=== PATIENT | female | born 1975 | race Two or more races ===

== ENCOUNTER 2018-05-13 08:44 | Emergency (ER) | payer OTHER ==
[~2018-05-13] VITALS: Ht 152.4 cm; Wt 94.3 kg
--- NOTE | 2018-05-13 08:49 | NUR ---
PT BIB RA FROM WORK,RIGHT ANKLE DISLOCATION, SLIP/FALL GOING DOWN STAIRS, PT IS AAOX4, NOT IN RESPIRAOTRY DISTRESS, V/S STABLE, KEPT RESTED AND COMFORTABLE, HOOKED TO MONITOR, PREP FOR CONSCIOUS SEDATION.
--- NOTE | 2018-05-13 08:50 | NUR ---
IV LINE ESTABLISHED L AC G18.
[2018-05-13] MEDS ORDERED: PROPOFOL 20 ML IV ONE (08:57)
[2018-05-13] MEDS ORDERED: PROPOFOL 200 MG/20 ML VIAL IV ONE (09:00)
--- NOTE | 2018-05-13 09:10 | NUR ---
R ANKLE REDUCTION INITIATED, RT AT BEDSIDE.
--- NOTE | 2018-05-13 09:14 | NUR ---
R ANKLE REDUCTION DONE, SPLINT DONE BY CYBER ENGINEER.
--- NOTE | 2018-05-13 09:18 | NUR ---
RADIOLOGY BACK AT BEDSIDE FOR ANKLE XRAY S/P REDUCTION.
[2018-05-13] MEDS ORDERED: MORPHINE SULFATE INJ 4 MG/ML DISP.SYRIN ONE ×2 (09:55→10:24)
--- NOTE | 2018-05-13 10:00 | NUR ---
MORPHINE 4MG IVP GIVEN VERBAL ORDERED BY DR. PUENTES.
[2018-05-13] MEDS ORDERED: MORPHINE SULFATE INJ 2 MG/ML DISP.SYRIN IV ONE (10:30)
--- NOTE | 2018-05-13 11:10 | NUR ---
Patient discharged to home in stable condition. Written and verbal after care instructions given. Patient verbalizes understanding of instruction. IV removed. Catheter intact and site benign. Pressure and 4x4 applied to site. No bleeding noted.
[2018-05-13 11:11] VITALS: BP 122/71
--- NOTE | 2018-05-13 11:12 | NUR ---
[facility] PROVIDE.
== END 2018-05-13 11:16 | disposition home or self-care (01) ==
LOC: ER 08:44
DX: S82.841A Displaced bimalleolar fracture of right lower leg, initial encounter for closed fracture (principal); I10 Essential (primary) hypertension; F32.9 Major depressive disorder, single episode, unspecified; X50.1XXA Overexertion from prolonged static or awkward postures, initial encounter; W01.0XXA Fall on same level from slipping, tripping and stumbling without subsequent striking against object, initial encounter; Y93.89 Activity, other specified; Y92.89 Other specified places as the place of occurrence of the external cause; Y99.8 Other external cause status
CPT/HCPCS: 27810; 73610; 96374; 99285; J2270; J2704; J7030